=== PATIENT | female | born 2000 | race Hispanic/Latino ===

== ENCOUNTER 2022-05-30 14:20 | Emergency (ER) | payer SELFPAY ==
[~2022-05-30 14:20] MED LIST: HYDR-3468 PO
[2022-05-30 14:26] VITALS: BP 109/66
--- NOTE | 2022-05-30 15:07 | ER.PDOC ---
General Chief Complaint: Cough/Congestion Stated Complaint: ST,SOB,CONGESTION Time seen by MD: 14:32 Source: patient Exam Limitations: no limitations History of Present Illness Initial Comments pt is a 22yo female here with low grade fever say she was in close contact with someone that had covid. She has been feeling sick ever since then with myalgias and headaches and chills Timing/Duration: abrupt Severity: mild Associated Symptoms: fever/chills Prior symptoms/Treatment: Similar symptoms previous Allergies: Coded Allergies: pineapple (Verified Adverse Reaction, Severe, Anaphylaxis Shock, 08/16/17) Uncoded Allergies: PEANUTS (Adverse Reaction, Severe, Anaphylaxis Shock, 08/16/17) Home Meds Active Scripts Hydrocodone Bit/Acetaminophen (NORCO 5-325 TABLET) 5-325 Ta1 Ea Tablet, 1 EA PO Q6HR PRN for PAIN for 30 Days, #30 TABLET 0 Refills Prov:CATHY JEAN MD 08/17/17 Constitutional: chills, fever EENTM: no symptoms reported Respiratory: cough All Other Systems: Reviewed and Negative Past Medical History Medical History: other Surgical History: no surgical history Social History Alcohol Use: none Drug Use: marijuana Reviewed Nursing Reviewed: Vital Signs, Abn. Noted, Nursing Assessment Physical Exam General Appearance: alert, no distress Eye: eyes nml inspection Nose: nose nml Throat: pharynx nml, airway nml Neck: nml inspection Respiratory: no resp.distress, breath sounds nml Abdomen: non-tender CVS: reg rate & rhythm, heart sounds nml Extremities: non-tender, nml ROM NEURO/PSYCH: oriented x 3 Results/Orders Results/Orders Orders - BHARTI RODRIGEZ MD Covid19 Antigen Darleen Abena (05/30/22 14:27) Influenza A&B (05/30/22 14:27) Strep Screen (05/30/22 14:27) Vital Signs Date Time Temp Pulse Resp B/P (MAP) Pulse Ox O2 Delivery O2 Flow Rate FiO2 05/30/22 14:26 98.3 59 18 99 05/30/22 14:26 98.3 59 18 05/30/22 14:26 98.3 59 18 109/66 (80) 99 Room Air* 0 21 Laboratory Tests Test 05/30/22 14:27 Influenza Type A Antigen NEGATIVE (NEG) Influenza Type B Antigen NEGATIVE (NEG) SARS-CoV-2 Antigen (Rapid) NEGATIVE (NEGATIVE) Group A Streptococcus Screen NEGATIVE (NEGATIVE) Progress Progress because she has sxs of covid and friend had covid and they were in close contact, she likely has covid ER DEPART Departure Time of Disposition: 15:20 Disposition: 01 HOME / SELF CARE / HOMELESS Impression: Primary Impression: COVID Condition: Stable Patient Instructions: COVID Referrals: PCP,UNKNOWN (PCP) PRIMARY CARE PROVIDER Duration or Time Spent with Pa: 8 BHARTI RODRIGEZ MD May 30, 2022 15:07
== END 2022-05-30 15:27 | disposition home or self-care (01) ==
LOC: ER 14:20
DX: R50.9 Fever, unspecified (principal); Z20.822 Contact with and (suspected) exposure to COVID-19; F12.90 Cannabis use, unspecified, uncomplicated
CPT/HCPCS: 87070; 87426; 87804; 87880; 99283